=== PATIENT | female | born 1950 | race Caucasian/White ===

== ENCOUNTER 2022-09-20 14:50 | Outpatient (CLI) | payer MEDICARE | END 2022-09-20 14:51 | disposition home or self-care (01) | LOC: CSHRAD 14:50 | PROVIDERS: ATTEND Surgery | DX: S22.089A Unspecified fracture of T11-T12 vertebra, initial encounter for closed fracture (principal); M47.814 Spondylosis without myelopathy or radiculopathy, thoracic region; S22.081A Stable burst fracture of T11-T12 vertebra, initial encounter for closed fracture; M43.16 Spondylolisthesis, lumbar region; M41.86 Other forms of scoliosis, lumbar region | CPT/HCPCS: 72100 ==

== ENCOUNTER 2022-10-15 16:01 | Outpatient (CLI) | payer MEDICARE | END 2022-10-15 16:02 | disposition home or self-care (01) | LOC: CSHRAD 16:01 | PROVIDERS: ATTEND Surgery | DX: S22.089D Unspecified fracture of T11-T12 vertebra, subsequent encounter for fracture with routine healing (principal); S22.080D Wedge compression fracture of T11-T12 vertebra, subsequent encounter for fracture with routine healing | CPT/HCPCS: 72100 ==

== ENCOUNTER 2022-11-27 14:45 | Outpatient (CLI) | payer MEDICARE | END 2022-11-27 14:46 | disposition home or self-care (01) | LOC: CSHRAD 14:45 | PROVIDERS: ATTEND Surgery | DX: S22.089D Unspecified fracture of T11-T12 vertebra, subsequent encounter for fracture with routine healing (principal) | CPT/HCPCS: 72100 ==

== ENCOUNTER 2023-06-04 17:30 | Emergency (ER) | payer MEDICARE ==
[~2023-06-04 17:30] MED LIST: Iopamidol 300 61% 100 ML VIAL FS ONE
[2023-06-04] MEDS ORDERED: Morphine 2 MG/ML VIAL ONE (19:03)
[2023-06-04] MEDS ORDERED: Ondansetron PF 4 MG/2 ML Vial ONE (19:03)
[2023-06-04 19:27] LABS: #Eosinphils 0.1 10x3/uL (0.0-0.5); #Monocytes 0.7 10x3/uL (0.0-1.1); #Neutrophils 4.8 10x3/uL (1.5-8.4); %Basophils 0.4 % (0.0-2.0); %Eosinophils 1.7 % (0.0-6.0); %Monocytes 9.7 % (0.0-10.0); %Neutrophils 68.1 % (40.0-75.0); Hematocrit 41.9 % (34.9-44.5); Mean Corpuscular HGB CONC 33.4 g/dL (32.0-36.0); Mean Corpuscular Hemoglobin 28.2 pg (27.0-33.0); Mean Corpuscular Volume 84.5 fl (81.6-98.3); Mean Platelet Volume 10.4 fl (7.4-10.4); Platelet Count 338 10x3/uL (150-450); RBC Distribution Width 13.2 % (11.5-14.5); Red Blood Cell (RBC) Count 4.96 10x6/uL (3.90-5.03)
[2023-06-04 19:30] LABS: Bilirubin Neg (Negative); Blood, Urine 25 (Negative); Clarity Clear (Clear); Glucose, Urine (Dipstick) Normal (Negative); Ketone, Urine Negative (Negative); Leukocyte 100 (Negative); Nitrite Negative (Negative); Protein, Urine (Dipstick) Negative (Neg-Trace); Urobilinogen Normal mg/dL (Less than 2)
[2023-06-04 19:34] LABS: ALT (SGPT) 10 U/L (8-55); AST (SGOT) 26 U/L (5-34); Albumin 4.1 g/dL (3.4-4.8); Alkaline Phosphatase 74 U/L (40-110); Anion Gap 15 mmol/L (10-20); BUN (Urea Nitrogen) 19 mg/dL (9.8-20.1); Bilirubin, Total 0.4 mg/dL (0.2-1.2); Calc. Creatinine Clearance 0 mL/min (70-130); Calcium 9.3 mg/dL (7.8-10.44); Carbon Dioxide 24 mmol/L (23-31); Chloride 103 mmol/L (98-107); Estimated GFR 60; Globulin 2.3 g/dL (2.4-3.5); Glucose 100 mg/dL (83-110); Lipase 36 U/L (8-78); Potassium 3.9 mmol/L (3.5-5.1); Protein, Total 6.4 g/dL (5.8-8.1); Sodium 138 mmol/L (136-145)
[2023-06-04 19:40] LABS: Troponin I Less than 0.010 ng/mL (< 0.028)
[2023-06-04 19:45] LABS: CAUTI Indications for Culture Pelvic or flank pain; Squamous Epithelial 0-3 HPF (0-3); Transitional Epithelial 0-3 HPF (None Seen)
[2023-06-04 19:48] LABS: Bacteria/HPF 2+ HPF (None Seen); Mucous/LPF 1+ LPF (<2+); Urine Culture Reflex No No
== END 2023-06-04 21:24 | disposition home or self-care (01) ==
LOC: CSHERS 17:30
DX: N30.00 Acute cystitis without hematuria (principal); K59.00 Constipation, unspecified; E78.00 Pure hypercholesterolemia, unspecified; I10 Essential (primary) hypertension; F17.210 Nicotine dependence, cigarettes, uncomplicated
CPT/HCPCS: 36415; 74177; 80053; 81001; 83690; 84484; 85025; 96361; 96374; 96375; J2272; J2405; Q9967

== ENCOUNTER 2023-07-03 13:40 | Outpatient (CLI) | payer MEDICARE | END 2023-07-03 13:41 | disposition home or self-care (01) | LOC: CSHMRI 13:40 | PROVIDERS: ATTEND Family Medicine | DX: E27.8 Other specified disorders of adrenal gland (principal); C78.7 Secondary malignant neoplasm of liver and intrahepatic bile duct; C79.51 Secondary malignant neoplasm of bone; I89.9 Noninfective disorder of lymphatic vessels and lymph nodes, unspecified | CPT/HCPCS: 74183 ==